=== PATIENT | male | born 1960 | race Caucasian/White ===

== ENCOUNTER → 2018-11-27 | Outpatient (CLI) | payer OTHER | LOC: M.LAB 08:04 | DX: E11.69 Type 2 diabetes mellitus with other specified complication (principal); E78.5 Hyperlipidemia, unspecified; E03.9 Hypothyroidism, unspecified; F32.9 Major depressive disorder, single episode, unspecified; Z79.4 Long term (current) use of insulin ==

== ENCOUNTER → 2019-02-21 | Outpatient (CLI) | payer OTHER ==
[2019-02-23 09:08] LABS: % FREE PSA 31.4 % (()); FREE PSA 0.88 ng/mL
== END ==
LOC: M.LAB 11:26
PROVIDERS: Internal Medicine
DX: E11.69 Type 2 diabetes mellitus with other specified complication (principal); E78.5 Hyperlipidemia, unspecified; F32.9 Major depressive disorder, single episode, unspecified

== ENCOUNTER 2019-07-18 10:18 | Emergency (ER) | payer OTHER ==
[~2019-07-18] VITALS: Ht 188 cm; Wt 80.7 kg
[2019-07-18] MEDS ORDERED: METFORMIN HCL500 M3 PO (10:30)
[2019-07-18 11:00] LABS: INFLUENZA A ANTIGEN Negative (Negative); INFLUENZA B ANTIGEN Negative (Negative)
[2019-07-18] MEDS ORDERED: PROAIR HFA8.5 GM INH (11:27)
[2019-07-18 11:35] VITALS: BP 118/78
== END 2019-07-18 11:35 | disposition home or self-care (01) ==
LOC: M.ERS 10:18
PROVIDERS: Physician Assistant
DX: B34.9 Viral infection, unspecified (principal); J06.9 Acute upper respiratory infection, unspecified; E11.9 Type 2 diabetes mellitus without complications; I10 Essential (primary) hypertension

== ENCOUNTER 2020-06-15 11:59 | Inpatient (IN) | payer OTHER ==
[~2020-06-15] VITALS: Ht 188 cm; Wt 73.0 kg
[2020-06-15] VITALS (9 sets, daily range): BP systolic 100–157; BP diastolic 57–100
--- NOTE | ~2020-06-15 | CON ---
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 I do not think he ever passed out. He had a similar episode 6 months ago and at that time also his blood sugar was very high. He feels he has returned back to his baseline. REVIEW OF SYSTEMS: Indicate that this patient has a blood sugar which was pretty high, at this time it was 454. He had a CAT scan of the head done, which does not show any acute changes. He has lost a lot of weight since July. In fact, he lost, but he never gained it back. He has not had any recent full physical examination to look for any underlying malignancy. His family doctor, Dr. Seay, has retired and he is trying to look for a new family doctor. His 14-point review of systems was otherwise noncontributory. PAST MEDICAL HISTORY: Positive for similar, but less pronounced spell in July. FAMILY HISTORY: Unremarkable. SOCIAL HISTORY: He works in the [employer] here in [employer]. PHYSICAL EXAMINATION: Indicates he is alert, responsive. I have known him previously and he appears to be back to his baseline. His cranial nerve examination is unremarkable. He has no meningeal sign. His position sense is present. His reflexes are diminished. I could not look at the patient's fundus. He is a very well-built individual. His blood pressure was 129/78, respiration was 20, pulse is 72, temperature was 98.4. He did not have any edema, cyanosis or jaundice. His TSH and vitamin B12 are normal. IMPRESSION AND PLAN: I think most likely his spell is related to his systemic problem. 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 I recommended an MRI of the brain and EEG. He does not want to get it done as an inpatient and for some [place] [address] CONSULTATION Name: DEMARIO CREWS Room: [address] IN ..#: [id number] Admission: 06/15/20 Attend Phys: Meng Craig, Discharge: Date of : 60 Report #: [id number] it done as an outpatient. I discussed that with him a few times and he was pretty clear that he will like to get it done only as an outpatient and he understands why I was recommending it and he said he will get it done, but as an outpatient. I asked him to think about it and if he changes his mind, he can let us know; otherwise, an MRI of the brain and EEG can be scheduled as an outpatient. I suspect most likely it will be unremarkable, but that needs to be done to complete the workup and otherwise systemic management is the mainstay of the treatment. Thank you very much for this referral and if you have any questions, please feel free to contact me. By: [id number] Beckett MD /nt
[~2020-06-15 11:59] MED LIST: METFORMIN HCL500 M3 PO; PROAIR HFA8.5 GM INH
[2020-06-15] MEDS ORDERED: TOPROL XL25 MG PO (12:03)
[2020-06-15 12:33] LABS: ABSOLUTE EOSINOPHILS 0.1 thou/uL (0.0-0.7); ABSOLUTE LYMPHOCYTES 1.4 thou/uL (0.8-5.3); ABSOLUTE MONOCYTES 0.4 thou/uL (0.0-1.2); BASOPHILS 0.7 %; EOSINOPHILS 1.9 %; HEMATOCRIT 46.8 % (42.0-52.0); LYMPHOCYTES 20.4 %; MCH 32.2 pg (26.0-34.0); MCHC 34.1 g/dL (28.0-37.0); MCV 94.4 fL (80.0-100.0); MONOCYTES 6.2 %; MPV 8.8 fl. (7.2-11.1); NUCLEATED RBCS 0 /100WBC; PLATELET COUNT* 261 thou/uL (150-400); POLYS 70.8 %; RBC 4.96 mil/uL (4.50-6.00); RDW-CV 12.9 % (10.5-14.5); WBC 7.1 thou/uL (4.0-11.0)
[2020-06-15 12:42] LABS: APTT 23.3 Seconds (25.0-31.3); PROTIME 10.2 Seconds (9.20-11.50)
[2020-06-15 12:45] LABS: CALCIUM 8.8 mg/dL (8.5-10.1); CREATININE 1.1 mg/dL (0.6-1.3)
[2020-06-15 12:57] LABS: ALBUMIN 4.3 g/dL (3.4-5.0); MAGNESIUM 2.1 mg/dL (1.8-2.4); TOTAL PROTEIN 7.4 g/dL (6.4-8.2)
[2020-06-15 14:04] LABS: URINE BILIRUBIN NEGATIVE (Negative); URINE BLOOD NEGATIVE (Negative); URINE CLARITY CLEAR; URINE COLOR YELLOW; URINE GLUCOSE-RANDOM 3+ (Negative); URINE LEUKOCYTES-REFLEX NEGATIVE (Negative); URINE NITRITE-REFLEX NEGATIVE (Negative); URINE PROTEIN NEGATIVE (Negative); URINE UROBILINOGEN 0.2 E.U./dl (0.2-1.0)
[2020-06-15 14:05] LABS: URINE KETONES 3+ (Negative)
--- NOTE | 2020-06-15 15:54 | EKG ---
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: CATY : 1960 Requested By: Jose Sagastume Order Number: [id number] MD: Yousuf Brambila Measurements Intervals [place] Rate: 98 P: 68 TX: 147 QRS: 66 QRSD: 77 T: 3 QT: 336 QTc: 430 Interpretive Statements Sinus rhythm nonspecific t wave changes Probable left atrial enlargement No previous ECG available for comparison Electronically Signed On 06-15-2020 15:54:10 TOWN CLERK by Yousuf Brambila [email or web address] <ELECTRONICALLY SIGNED> By: Yousuf Brambila MD, [facility] 06/15/20 1554 1204 1204 Yousuf Brambila MD, [facility] /EPI
--- NOTE | 2020-06-15 16:00 | 2DMMODE ---
[place] [address] 2 D/M-MODE ECHOCARDIOGRAM Name: MARSDEMARIO DUTTON Room: [place] [address] ADM IN [facility].#: [id number] Admission: 06/15/20 Attend Phys: Meng Medina Discharge: Date of : 60 Date of Service: 06/15/20 1559 Report #: [id number] THIS REPORT FOR: cc: Janice Panda Tammy RNP Blick, David R. MD [facility] ~ APPROVED REPORT Study performed: 06/15/2020 14:26:57 EXAM: Comprehensive 2D, Doppler, and color-flow Echocardiogram Patient Location: In-Patient Room #: er Status: routine BSA: 1.99 HR: 76 bpm BP: 139/90 mmHg Rhythm: NSR Other Information Study Quality: Good Indications Dyspnea Palpitations 2D Dimensions IVSd: 10.39 (7-11mm) LVOT Diam: 24.03 (18-24mm) LVDd: 35.00 mm PWd: 8.50 (7-11mm) Ascending Ao: 47.87 (22-36mm) LVDs: 23.32 (25-40mm) Aortic Root: 41.42 mm Volumes Left Atrial Volume (Systole) LA ESV Index: 20.10 mL/m2 Aortic Valve AoV Peak Wes.: 0.81 m/s AO Peak Gr.: 2.60 mmHg LVOT Max P.17 mmHg AO Mean Gr.: 1.47 mmHg LVOT Mean P.00 mmHg LVOT Max V: 0.74 m/s AO V2 VTI: 13.51 cm LVOT Mean V: 0.46 m/s SETLLA (VTI): 4.43 cm2 LVOT V1 VTI: 13.19 [place] [address] 2 D/M-MODE ECHOCARDIOGRAM Name: DEMARIO CREWS Room: [address] IN .R.#: [id number] Admission: 06/15/20 Attend Phys: Meng Medina Discharge: Date of : 60 Date of Service: 06/15/20 1559 Report #: [id number] Mitral Valve E/A Ratio: 0.83 MV Decel. Time: 336.25 ms MV E Max Wes.: 0.45 m/s MV PHT: 97.51 ms MVA (PHT): 2.26 cm2 TDI E/Lateral E': 4.09 E/Medial E': 5.63 Medial E' Wes.: 0.08 m/s Lateral E' Wes.: 0.11 m/s Pulmonary Valve PV Peak Wes.: 0.97 m/s PV Peak Gr.: 3.80 mmHg Tricuspid Valve RAP Estimate: 5.00 mmHg TR Peak Gr.: 15.49 mmHg RVSP: 20.00 mmHg PA Pressure: 20.00 mmHg Left Ventricle The left ventricle is normal size. There is normal LV segmental wall motion. There is normal left ventricular wall thickness. Left ventricular systolic function is normal. The left ventricular ejection fraction is within the normal range. LVEF is 60-65%. Grade I - abnormal relaxation pattern. Right Ventricle The right ventricle is normal size. The right ventricular systolic function is normal. Atria The left atrium size is normal. The right atrium size is normal. Aortic Valve The aortic valve is normal in structure. Mild aortic regurgitation. There is no aortic valvular stenosis. Mitral Valve The mitral valve is normal in structure. Mild mitral regurgitation. No evidence of mitral valve stenosis. Tricuspid Valve The tricuspid valve [place] [address] 2 D/M-MODE ECHOCARDIOGRAM Name: DEMARIO CREWS Room: [address] IN [facility]#: [id number] Admission: 06/15/20 Attend Phys: Meng Medina Discharge: Date of : 60 Date of Service: 06/15/20 1559 Report #: [id number] regurgitation. No pulmonary hypertension. Pulmonic Valve The pulmonary valve is normal in structure. There is no pulmonic valvular regurgitation. Great Vessels Aortic root is dilated. The ascending aorta is dilated. IVC is normal in size and collapses >50% with inspiration. Pericardium There is no pericardial effusion. <Conclusion> LVEF is 60-65%. Mild aortic regurgitation. Aortic root is dilated. <ELECTRONICALLY SIGNED> By: Yousuf Brambila MD, [facility] 06/15/20 1559 1559 1559 Yousuf Brambila MD, FACC /INF
[2020-06-15 19:54] LABS: CALCIUM 9.3 mg/dL (8.5-10.1); CREATININE 0.9 mg/dL (0.6-1.3); POTASSIUM 3.4 mmol/L (3.5-5.1)
[2020-06-15 23:48] LABS: ALBUMIN 3.9 g/dL (3.4-5.0); CALCIUM 8.9 mg/dL (8.5-10.1); CREATININE 0.9 mg/dL (0.6-1.3); MAGNESIUM 2.3 mg/dL (1.8-2.4); PHOSPHORUS* 3.5 mg/dL (2.5-4.9); POTASSIUM 3.7 mmol/L (3.5-5.1)
[2020-06-16] VITALS (19 sets, daily range): BP systolic 88–131; BP diastolic 45–78
[2020-06-16 04:22] LABS: HEMATOCRIT 43.1 % (42.0-52.0); HEMOGLOBIN 14.7 gm/dL (14.0-18.0); MCH 31.9 pg (26.0-34.0); MCHC 34.2 g/dL (28.0-37.0); MCV 93.5 fL (80.0-100.0); MPV 8.5 fl. (7.2-11.1); RBC 4.61 mil/uL (4.50-6.00); RDW-CV 12.7 % (10.5-14.5); WBC 6.9 thou/uL (4.0-11.0)
[2020-06-16 05:03] LABS: ALBUMIN 3.5 g/dL (3.4-5.0); CALCIUM 8.8 mg/dL (8.5-10.1); PHOSPHORUS* 3.3 mg/dL (2.5-4.9); POTASSIUM 3.1 mmol/L (3.5-5.1)
[2020-06-16 05:05] LABS: CHOLESTEROL 128 mg/dL (<200); HDL CHOLESTEROL 35 mg/dL (>40); LDL CHOLESTEROL 81 mg/dL (<100); TC:HDL 3.7 Ratio (Not establshd); TRIGLYCERIDE 64 mg/dL (<150); VLDL 13 mg/dL (<40)
[2020-06-16 05:06] LABS: SERUM ASSESSMENT Clear
[2020-06-16 05:08] LABS: CALCIUM 8.8 mg/dL (8.5-10.1); MAGNESIUM 2.1 mg/dL (1.8-2.4); POTASSIUM 3.5 mmol/L (3.5-5.1)
[2020-06-16 09:42] LABS: ALBUMIN 3.5 g/dL (3.4-5.0); CALCIUM 8.2 mg/dL (8.5-10.1); CREATININE 0.9 mg/dL (0.6-1.3); MAGNESIUM 2.1 mg/dL (1.8-2.4); PHOSPHORUS* 3.1 mg/dL (2.5-4.9); POTASSIUM 3.5 mmol/L (3.5-5.1)
[2020-06-17 08:00] VITALS: BP 102/69
[2020-06-17] MEDS ORDERED: METFORMIN HCL500 M1 PO (08:14)
[2020-06-17] MEDS ORDERED: LANTUS SUBQ (08:14)
[2020-06-17] MEDS ORDERED: LOW DOSE ASPIRI81 M1 PO (08:14)
[2020-06-17 08:20] VITALS: BP 124/75
== END 2020-06-17 11:15 | disposition home or self-care (01) | DRG 639 ==
LOC: M.ERS 11:59 → M.TBA-ER 12:44 → M.ICU 14:31 → M.TBA-ER 14:31 → M.ICU 18:50 → M.3W 06-16 14:20
PROVIDERS: Emergency Medicine Emergency Medical Services; ADMIT Family Medicine; ATTEND Family Medicine
DX: E11.10 Type 2 diabetes mellitus with ketoacidosis without coma (principal); I10 Essential (primary) hypertension; I77.819 Aortic ectasia, unspecified site; I20.8 Other forms of angina pectoris; I95.9 Hypotension, unspecified; Z20.828 Contact with and (suspected) exposure to other viral communicable diseases; Z79.82 Long term (current) use of aspirin; Z79.899 Other long term (current) drug therapy

== ENCOUNTER → 2020-06-24 | Outpatient (CLI) | payer OTHER ==
[~2020-06-24] MED LIST changes: +LANTUS SUBQ; +LOW DOSE ASPIRI81 M1 PO; +METFORMIN HCL500 M1 PO; +TOPROL XL25 MG PO
== END ==
LOC: M.CT 10:50
PROVIDERS: ATTEND Registered Nurse
DX: I77.810 Thoracic aortic ectasia (principal); K76.0 Fatty (change of) liver, not elsewhere classified; M25.78 Osteophyte, vertebrae; I25.10 Atherosclerotic heart disease of native coronary artery without angina pectoris

== ENCOUNTER → 2021-02-25 | Outpatient (CLI) | payer OTHER ==
[2021-02-25 08:13] LABS: ALBUMIN 4.2 g/dL (3.4-5.0); CALCIUM 9.2 mg/dL (8.5-10.1); CREATININE 1.1 mg/dL (0.6-1.3); DIRECT BILIRUBIN 0.2 mg/dL (<0.1-0.3); POTASSIUM 4.9 mmol/L (3.5-5.1); TOTAL BILIRUBIN 0.8 mg/dL (<0.1-1.0)
== END ==
LOC: M.LAB 07:00 → M.CT 08:00
PROVIDERS: ATTEND Internal Medicine Cardiovascular Disease
DX: I77.810 Thoracic aortic ectasia (principal); K76.0 Fatty (change of) liver, not elsewhere classified; I48.91 Unspecified atrial fibrillation; E11.9 Type 2 diabetes mellitus without complications; Z79.4 Long term (current) use of insulin; Z79.899 Other long term (current) drug therapy